=== PATIENT | female | born 1995 | race Caucasian/White ===

== ENCOUNTER → 2021-01-13 | Outpatient (CLI) | payer BC ==
--- NOTE | 2021-01-13 16:07 | Diagnostic Imaging Report ---
INDICATION: survey. TECHNIQUE: Multiple real-time grayscale images were obtained over the gravid uterus. COMPARISON: None FINDINGS: There is a single live fetus in a cephalic presentation. heart rate was recorded at 150 bpm. Placenta is anterior. Amniotic fluid index is normal. survey demonstrates kidneys, bladder and stomach to be unremarkable. brain is unremarkable. There is a four-chamber heart. There is a three-vessel cord with normal insertion. spine is unremarkable. Maternal adnexa are unremarkable. Biometrical measurements are as follows: Biparietal 4.93 cm, age 21 weeks 0 days. Head circumference 17.48 cm, age 20 weeks 1 days. Abdominal circumference 14.51 cm, age 19 weeks 6 days. Femur length 3.47 cm, age 21 weeks 0 days. Sonographic estimate age: 20 weeks 4 days. Sonographic estimated date of delivery: 05/29/21. Estimated Weight: 347 gm (+/- 51 gm). LMP percentile: 39%. heart rate: 150 beats per minute. number: 1 of 1. IMPRESSION: Single live IUP 20 weeks 4 days gestational age. Estimated date of confinement sonographically is 05/29/2021. Dictated by: Dictated on workstation # [id number]
== END ==
LOC: RAD 12:00
PROVIDERS: ATTEND Obstetrics & Gynecology
DX: Z34.92 Encounter for supervision of normal pregnancy, unspecified, second trimester (principal); Z3A.20 20 weeks gestation of pregnancy
CPT/HCPCS: 76805